=== PATIENT | male | born 1980 | race African-American/Black ===

== ENCOUNTER 2017-03-23 21:34 | Emergency (ER) | payer OTHER ==
[2017-03-23 21:56] VITALS: BP 127/102; PULSE 74; TEMP 98.3; BMI 27.8
[2017-03-23] MEDS ORDERED: SULFAMETHOXAZOLE/TRIMETHOPRIM 800MG/160MG D.S. TABLET ONE (22:09)
--- NOTE | 2017-03-23 22:10 | PDOC ---
Suture Removal/Wound Check HPI - History of Present Illness Chief Complaint: Abscess Boil Stated Complaint: Abscess Boil Time Seen by Provider: 03/23/17 21:58 Past History - Past Medical History Allergies/Adverse Reactions: Allergies lactose Adverse Reaction (Verified 03/23/17 21:52) RED MEAT, PORK Adverse Reaction (Uncoded 03/23/17 21:52) Nausea Home Medications: Ambulatory Orders Albuterol 0.083% Nebulizer Enma [Ventolin 0.083% Nebulizer Soln -] 1 neb NEB Q6H #30 vial 05/04/14 Albuterol Sulfate Inhaler - [Ventolin HFA Inhaler -] 1 - 2 inh PO PRN PRN #1 inh 05/04/14 Prednisone [Deltasone -] 40 mg PO DAILY #7 tablet 05/04/14 Sulfamethoxazole/Trimethoprim [Bactrim Ds Tablet] 1 each PO BID #14 tablet 05/04 - Immunization History Immunizations Up to Date: Yes Tetanus Status: Less than 5 years - Social History Smoking Status: Never smoked Cigars Per Day: 1
[2017-03-23] MEDS ORDERED: KETOROLAC TROMETHAMINE 60 MG/2 ML VIAL IM ONE (22:11)
[2017-03-23] MEDS ORDERED: SULFAMETHOXAZOLE/TRIMETHOPRIM 800MG/160MG D.S. TABLET PO ONE (22:11)
--- NOTE | 2017-03-23 22:16 | PDOC ---
History of Present Illness - General Chief Complaint: Abscess Boil Stated Complaint: Abscess Boil Time Seen by Provider: 03/23/17 21:58 History Source: Patient Exam Limitations: No Limitations - History of Present Illness Initial Comments: 03/23/17 22:15 Patient here with complaints of multiple swellings and tender lesions under his right armpit. States onset was approximately 3-4 days ago and has progressively worsened and become more painful. Denies fever, no history of same. Also has noted boxer's fracture diagnosed 2 weeks ago and splinted at [facility]. Did not follow-up and was asking about orthopedic referral Timing/Duration: reports: changing over time, getting worse Severity: Yes: moderate Location: reports: torso Respiratory Risk Factors: reports: no cause identified Associated Symptoms: denies: fever Past History - Travel Traveled outside of the country in the last 30 days: No Close contact w/someone who was outside of country & ill: No - Past Medical History Allergies/Adverse Reactions: Allergies Allergy/AdvReac Type Severity Reaction Status Date / Time lactose AdvReac Verified 03/23/17 21:52 RED MEAT, PORK AdvReac Nausea Uncoded 03/23/17 21:52 Home Medications: Ambulatory Orders Sulfamethoxazole/Trimethoprim [Bactrim *Ds*] 1 each PO BID #14 tablet 03/23/17 Asthma: Yes - Immunization History Immunization Up to Date: Yes - Psycho/Social/Smoking Cessation Hx Anxiety: No Suicidal Ideation: No Smoking History: Never smoked Cigars Per Day: 1 Information on smoking cessation initiated: No Hx Alcohol Use: No Drug/Substance Use Hx: No Substance Use Type: None Hx Substance Use Treatment: No Review of Systems - Review of Systems Able to Perform ROS?: Yes Is the patient limited Syrian proficient: Yes Constitutional: Yes: Symptoms Reported, See HPI, Malaise. No: Fever HEENTM: No: Symptoms Reported Respiratory: No: Symptoms reported ABD/GI: No: Symptoms Reported Musculoskeletal: Yes: Symptoms Reported, See HPI, Joint Pain, Joint Swelling ( right hand splinted/ ) Integumentary: Yes: Symptoms Reported, See HPI, Lesions (multiple to right axilla) Neurological: No: Symptoms reported All Other Systems: Reviewed and Negative *Physical Exam - Vital Signs Last Vital Signs Temp Pulse Resp BP Pulse Ox 98.3 F 74 20 127/102 97 03/23/17 21:53 03/23/17 21:53 03/23/17 21:53 03/23/17 21:53 03/23/17 21:53 - Physical Exam General Appearance: Yes: Nourished, Appropriately Dressed, Apparent Distress, Mild Distress HEENT: positive: LILY, Normal ENT Inspection, TMs Normal, Pharynx Normal Neck: negative: Tender Respiratory/Chest: positive: Lungs Clear Lymphatic: positive: Adenopathy Musculoskeletal: positive: Other. negative: Normal Inspection Extremity: positive: Normal Capillary Refill. negative: Normal Inspection, Normal Range of Motion (right hand splinted in dorsal splint, has neurovascular intact to fingers,) Integumentary: positive: Warm, Erythema, Other (3 distinct erythematous and tender lesions under right axilla consistent with onset of hidradenitis abscess. 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 Encouraged to return for incision and drainage if come to ahead and do not draining. Oxygen fracture by history, encourage patient to follow up with orthopedist or Dr. Del Angel's clinic on Tuesdays and for reevaluation. Is 2-1/2 weeks out therefore casting probable not necessary at this stage. Will leave on splint and have follow up with Orth O *DC/Admit/Observation/Transfer Diagnosis at time of Disposition: Hydradenitis - Discharge Dispostion Disposition: HOME Condition at time of disposition: Stable Admit: No - Referrals Referrals: Jason Del Angel MD [Staff Physician] - - Patient Instructions Printed Discharge Instructions: DI for Skin Abscess, DI for Boxer's Fracture Additional Instructions: Rest, keep area elevated. Avoid strenuous activity or exercise until wound is healed Use hot soaks to area to bring more blood to the surface and encourage drainage Allow water from shower to wash area thoroughly for 2-3 minutes, and pat dry upon exit of shower and replace dressing. Change his dressing daily until the wound is completely healed. May use Tylenol or Motrin for mild pain relief Use stronger medications as directed and prescribed Continue all medications as prescribed Followup with private physician in 2-3 days for wound check Return to emergency Department for worsening swelling, pain, redness, fevers as needed Dr. Jason Del Angel has orthopedic clinic hours for Medicare/Medicaid Orthopedic referral patients Office is located on [address] at [facility] ; call for appointment Clinic is open Friday from 9 AM to 12 noon and afternoon from to 4pm - Post Discharge Activity Work/School Note: Back to Work
== END 2017-03-23 22:24 | disposition home or self-care (01) ==
LOC: JERFT 21:34
PROC: 3E0233Z Introduction of Anti-inflammatory into Muscle, Percutaneous Approach (ICD-10-PCS; principal; 2017-03-23)
DX: L73.2 Hidradenitis suppurativa (principal); J45.909 Unspecified asthma, uncomplicated
CPT/HCPCS: 99281-25

== ENCOUNTER 2017-05-02 08:43 | Emergency (ER) | payer OTHER ==
[2017-05-02 09:01] VITALS: BP 129/79; PULSE 59; TEMP 97.9; BMI 29.0
[2017-05-02] MEDS ORDERED: ERYTHROMYCIN 0.5% OPHTHALMIC OINTMENT 3.5 GM TUBE OS ONE (09:21)
[2017-05-02] MEDS ORDERED: ERYTHROMYCIN 0.5% OPHTHALMIC OINTMENT 3.5 GM TUBE ONE (09:23)
--- NOTE | 2017-05-02 09:25 | PDOC ---
History of Present Illness - General Chief Complaint: Edema Stated Complaint: EVALUATION Time Seen by Provider: 05/02/17 09:11 History Source: Patient Exam Limitations: No Limitations - History of Present Illness Initial Comments: 05/02/17 09:20 Came for evaluation of swelling to left upper lid. States is painful, and woke up with same. Denies drainage, denies visual changes, denies any recent injury or infections. Wondered if the was stye, has never suffered from same Timing/Duration: unsure, 24 hours Associated Symptoms: reports: denies symptoms Past History - Travel Traveled outside of the country in the last 30 days: No Close contact w/someone who was outside of country & ill: No - Past Medical History Allergies/Adverse Reactions: Allergies Allergy/AdvReac Type Severity Reaction Status Date / Time lactose AdvReac Verified 05/02/17 08:55 RED MEAT, PORK AdvReac Nausea Uncoded 05/02/17 08:55 Home Medications: Ambulatory Orders NK [No Known Home Medication] 05/02/17 Asthma: Yes - Immunization History Immunization Up to Date: Yes - Suicide/Smoking/Psychosocial Hx Smoking History: Never smoked Have you smoked in the past 12 months: No Cigars Per Day: 1 Information on smoking cessation initiated: No Hx Alcohol Use: No Drug/Substance Use Hx: No Substance Use Type: None Hx Substance Use Treatment: No Review of Systems - Review of Systems Able to Perform ROS?: Yes Is the patient limited Kiswahili proficient: Yes Constitutional: Yes: Symptoms Reported, See HPI. No: Chills, Fever HEENTM: Yes: Symptoms Reported, See HPI, Eye Pain. No: Blurred Vision, Tearing , Recent change in vision, Ear Pain Respiratory: Yes: See HPI. No: Symptoms reported, Cough *Physical Exam - Vital Signs Last Vital Signs Temp Pulse Resp BP Pulse Ox 97.9 F 59 L 18 129/79 100 05/02/17 08:55 05/02/17 08:55 05/02/17 08:55 05/02/17 08:55 05/02/17 08:55 - Physical Exam General Appearance: Yes: Nourished, Appropriately Dressed. No: Apparent Distress HEENT: positive: LILY, Normal ENT Inspection, TMs Normal, Pharynx Normal, Other (has small pinpoint lesion to the inner aspect of upper left eyelid consistent with a stye) Neck: positive: Supple. 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 *DC/Admit/Observation/Transfer Diagnosis at time of Disposition: Stye external Qualifiers: Laterality: left Eyelid: upper Qualified Code(s): H00.014 - Hordeolum externum left upper eyelid - Discharge Dispostion Disposition: HOME Condition at time of disposition: Stable Admit: No - Patient Instructions Printed Discharge Instructions: DI for Hordeolum Additional Instructions: Rest, avoid rubbing eyes Wash hands frequently Use hot soaks to area as often as possible to draw infection up and allow to drain may use erythromycin ointment for lubricationto eye as needed Followup with ophthalmology or private physician as needed
== END 2017-05-02 09:29 | disposition home or self-care (01) ==
LOC: JERFT 08:43
DX: H00.014 Hordeolum externum left upper eyelid (principal)
CPT/HCPCS: 99281-25

== ENCOUNTER 2020-06-27 04:39 | Emergency (ER) | payer OTHER ==
[2020-06-27 04:53] VITALS: TEMP 97.7; BMI 35.0
[2020-06-27] MEDS ORDERED: ALBUTEROL SO4 HFA INHALER IH ONE ×2 (05:16→05:24)
[2020-06-27] MEDS ORDERED: predniSONE 20 MG TABLET (UD) PO ONE (05:55)
[2020-06-27 05:57] LABS: BASO % 0.5 % (0-2.0); EOS % 9.1 % (0-4.5); HEMATOCRIT 40.9 % (35.4-49); HEMOGLOBIN 13.8 GM/dL (11.7-16.9); LYMPH % 42.3 % (8-40); MCH 29.4 pg (25.7-33.7); MCHC 33.6 g/dl (32.0-35.9); MEAN CELL VOLUME 87.5 fl (80-96); MEAN PLT VOLUME 8.1 fl (7.5-11.1); NEUT % 37.1 % (42.8-82.8); PLATELET COUNT 203 K/MM3 (134-434); RBC 4.67 M/mm3 (4.00-5.60); RDW 13.9 % (11.9-15.9); WHITE BLOOD COUNT 7.5 K/mm3 (4.0-10.0)
[2020-06-27] MEDS ORDERED: FAMOTIDINE 20 MG TABLET PO ONE (06:07)
[2020-06-27 06:13] LABS: CHLORIDE 108 mmol/L (98-107); SODIUM 140 mmol/L (136-145)
[2020-06-27] MEDS ORDERED: FAMOTIDINE 20 MG TABLET ONE (06:13)
[2020-06-27] MEDS ORDERED: predniSONE 20 MG TABLET (UD) ONE (06:13)
[2020-06-27 06:15] LABS: CALCIUM 8.1 mg/dL (8.5-10.1)
[2020-06-27 06:16] LABS: ALBUMIN 3.7 g/dl (3.4-5.0); ANION GAP 5 MMOL/L (8-16); BLOOD UREA NITROGEN 15.8 mg/dL (7-18); CO2 28 mmol/L (21-32); GLUCOSE,RANDOM 96 mg/dL (74-106)
[2020-06-27 06:19] LABS: CREATININE 0.9 mg/dL (0.55-1.3); SGOT/AST 14 U/L (15-37); SGPT/ALT 16 U/L (13-61)
[2020-06-27 06:20] VITALS: BP 103/69; PULSE 64
[2020-06-27 06:21] LABS: BILIRUBIN,TOTAL 0.4 mg/dL (0.2-1); TOT PROT 6.9 g/dl (6.4-8.2)
[2020-06-27 06:22] LABS: ALK PHOS 79 U/L (45-117)
== END 2020-06-27 06:52 | disposition home or self-care (01) ==
LOC: JER 04:39
DX: R07.1 Chest pain on breathing (principal); J45.31 Mild persistent asthma with (acute) exacerbation
CPT/HCPCS: 36415; 71046-TC-FY; 80053; 82550; 82553; 84484; 85025; 85379; 93005; 93010; 99285-25